=== PATIENT | female | born 1985 | race Caucasian/White ===

== ENCOUNTER 2020-01-29 14:27 | Emergency (ER) | payer SELFPAY ==
--- NOTE | 2020-01-29 14:39 | ER Document Report ---
ED Extremity Problem, Lower - General Chief Complaint: Foot Pain Stated Complaint: HEEL PAIN Time Seen by Provider: 01/29/20 14:30 Primary Care Provider: ANIVAL KAN DPM [ACTIVE STAFF] - Follow up as needed Mode of Arrival: Ambulatory Information source: Patient Notes: 34-year-old female presents to ED for complaint of pain to the right heel and foot. She states 4 days ago she started with burning to the lateral side of the foot and then now she has burning to the heel. She states she was walking when it started and it has continued and progressed. She states she called her mother in [place] and she told her that she had to get a steroid shot for the same pain in the past. - HPI Patient complains to provider of: Pain. No: Injury Location: Foot Occurred: Other Onset/Duration: Gradual - Days Quality of pain: Burning Severity: Severe Pain Level: 5 Recent injury: No Associated symptoms: Painful ambulation Exacerbated by: Movement, Walking Relieved by: Nothing - Related Data Allergies/Adverse Reactions: No Known Allergies Allergy (Unverified 01/29/20 14:35) Past Medical History - General Information source: Patient - Social History Smoking Status: Former Smoker - Vapor Cigarette use (# per day): No Frequency of alcohol use: None Drug Abuse: None Lives with: Family Family History: Reviewed & Not Pertinent Patient has suicidal ideation: No Patient has homicidal ideation: No - Past Medical History Cardiac Medical History: Reports: None Pulmonary Medical History: Reports: None EENT Medical History: Reports: None Neurological Medical History: Reports: None Endocrine Medical History: Reports: None Renal/ Medical History: Reports: None Malignancy Medical History: Reports: None GI Medical History: Reports: None Musculoskeletal Medical History: Reports None Skin Medical History: Reports None Psychiatric Medical History: Reports: Hx Anxiety, Hx Bipolar Disorder, Hx Depression, Hx Schizophrenia Traumatic Medical History: Reports: None Infectious Medical History: Reports: None Surgical Hx: Negative Past Surgical History: Reports: None - Immunizations Immunizations up to date: Yes Hx Diphtheria, Pertussis, Tetanus Vaccination: Yes Review of Systems - Review of Systems Constitutional: No symptoms reported EENT: No symptoms reported Cardiovascular: No symptoms reported Respiratory: No symptoms reported Gastrointestinal: No symptoms reported Genitourinary: No symptoms reported Female Genitourinary: No symptoms reported Musculoskeletal: Other Skin: No symptoms reported Hematologic/Lymphatic: No symptoms reported Neurological/Psychological: No symptoms reported -: Yes All other systems reviewed and negative Physical Exam - Vital signs Vitals: Temp Pulse Resp BP Pulse Ox 98.0 F 83 20 142/66 H 100 01/29/20 14:31 01/29/20 14:31 01/29/20 14:31 01/29/20 14:31 01/29/20 14:31 Interpretation: Normal - General General appearance: Appears well, Alert - HEENT Head: Normocephalic, Atraumatic Eyes: Normal Pupils: PERRL - Respiratory Respiratory status: No respiratory distress Chest status: Nontender Breath sounds: Normal Chest palpation: Normal - Cardiovascular Rhythm: Regular Heart sounds: Normal auscultation Murmur: No - Abdominal Inspection: Normal Distension: No distension Bowel sounds: Normal Tenderness: Nontender Organomegaly: No organomegaly - Back Back: Normal, Nontender - Extremities General upper extremity: Normal inspection, Nontender, Normal color, Normal ROM, Normal temperature General lower extremity: Normal color, Normal ROM, Normal temperature. No: Vaibhav's sign Foot: Tender - Bottom of the foot and the heel, No evidence of FB - Neurological Neuro grossly intact: Yes Cognition: Normal Orientation: AAOx4 Gray Coma Scale Eye Opening: Spontaneous Debora Coma Scale Verbal: Oriented Debora Coma Scale Motor: Obeys Commands Debora Coma Scale Total: 15 Speech: Normal Motor strength normal: LUE, RUE, LLE, RLE Sensory: Normal - Psychological Associated symptoms: Normal affect, Normal mood - Skin Skin Temperature: Warm Skin Moisture: Dry Skin Color: Normal Course - Re-evaluation Re-evalutation: 01/29/20 15:31 Discussed x-ray with patient and showed her the films. Patient was instructed on use of ice packs foot exercises and need to follow-up with podiatry. Patient verbalized understanding and agreement with treatment plan and patient was discharged home. - Vital Signs Vital signs: Temp Pulse Resp BP Pulse Ox 98.2 F 84 15 126/66 H 100 01/29/20 15:13 01/29/20 15:13 01/29/20 15:13 01/29/20 15:13 01/29/20 15:13 - Diagnostic Test Radiology reviewed: Image reviewed, Reports reviewed Discharge - Discharge Clinical Impression: Plantar fasciitis, Right foot pain Condition: Stable Disposition: HOME, SELF-CARE Additional Instructions: Plantar Fasciitis or Heel Spur Plantar fasciitis is an inflammation of a ligament on the underside of the foot. It can be caused by injury, overuse such as running, or poorly fitting shoes. There may be a bone spur on the heel if inflammation has persisted a long time. Plantar fasciitis is treated with stretching exercises and antiinflammatory medicine. More severe cases may require injection of cortisone. It may take several weeks to get better. If nothing gives relief, an operation to remove the heel spur may help. Call or return if there is redness, increasing pain, swelling, fever, or any other new symptoms. Exercises for the Foot Muscles Stretching and strengthening of the foot muscles is an important part of recovery from injury, as well as in treatment and prevention of overuse syndr omes like plantar fasciitis. TOWEL CURLS: Put your foot on a dry towel. Curl your toes to pick it up, then drop it. As it becomes easier, use a heavier towel. Repeat 20 times, twice daily. BOLANOS CURLS: Lift and turn your knee, so your foot is against the opposite leg about mid-bolanos. Try to "grab" the entire bolanos bone with your toes, while moving your foot up and down the leg for one minute. Repeat twice daily. TOE LIFTS: Put your opposite foot over your 2nd to 5th toes. Now lift the toes up, pushing the other foot upward. Repeat 10 times, twice daily. Repeat using the large toe. EVERSIONS: Cross the opposite foot over, placing the heel just behind the 4th and 5th toes. Try to lift up the outside of the bottom foot. Hold 10 seconds. Repeat twice daily. Ice Packs Apply ice packs frequently against the painful area. Many different schedules are recommended, such as "20 minutes on, 20 minutes off" or "one hour ice, two hours rest." If you need to work, you may need to go longer between ice treatments. You should plan to have the area ice packed AT LEAST one fourth of the time. The ice should be applied over the wrap, tape, or splint, or over a layer of cloth -- not directly against the skin. Some ice bags have a built-in cloth and can be put directly on the skin. Ibuprofen Ibuprofen is an excellent, safe drug for pain control. In addition, it has potent antiinflammatory effects which are beneficial, especially in the treatment of injuries, arthritis, or tendonitis. It's best to take ibuprofen with food. Persons with ulcer disease or allergy to aspirin should notify their physician of this before taking ibuprofen. Take the medication exactly as prescribed. Don't take additional doses unless instructed to do so by your doctor. If you develop wheezing, shortness of breath, hives, faintness, stomach pain, vomiting, or dark black stools, return for re-evaluation at once. FOLLOW-UP CARE: If you have been referred to a physician for follow-up care, call the physicians office for an appointment as you were instructed or within the next two days. If you experience worsening or a significant change in your symptoms, notify the physician immediately or return to the Emergency Department at any time for re-evaluation. Forms: Smoking Cessation Education Referrals: ANIVAL KAN DPM [ACTIVE STAFF] - Follow up as needed
[2020-01-29] MEDS ORDERED: IBUPROFEN 800 MG TABLET PO ONE (14:43)
--- NOTE | 2020-01-29 15:01 | RADIOLOGY REPORT (SQ) ---
EXAM DESCRIPTION: FOOT RIGHT COMPLETE COMPLETED DATE/TIME: 01/29/2020 2:51 pm REASON FOR STUDY: foot pain COMPARISON: None. NUMBER OF VIEWS: Three views. TECHNIQUE: AP, lateral and oblique radiographic images acquired of the right foot. LIMITATIONS: None. FINDINGS: MINERALIZATION: Normal. BONES: No acute fracture or dislocation. No worrisome bone lesions. JOINTS: No effusions. SOFT TISSUES: No soft tissue swelling. No foreign body. OTHER: No other significant finding. IMPRESSION: NEGATIVE STUDY OF THE RIGHT FOOT. NO RADIOGRAPHIC EVIDENCE OF ACUTE INJURY. TECHNICAL DOCUMENTATION: JOB ID: [id number] [employer]- All Rights Reserved Reading location - IP/workstation name: [email or web address]
[2020-01-29 15:15] VITALS: BP 126/66
== END 2020-01-29 15:27 | disposition home or self-care (01) ==
LOC: ER 14:27
DX: M72.2 Plantar fascial fibromatosis (principal); M79.671 Pain in right foot; Z87.891 Personal history of nicotine dependence
CPT/HCPCS: 99283

== ENCOUNTER 2020-05-26 12:08 | Emergency (ER) | payer SELFPAY ==
[2020-05-26] MEDS ORDERED: OXYCODONE-ACETAMINOPHEN 5-325 MG TABLET PO ONE (13:00)
--- NOTE | 2020-05-26 13:40 | RADIOLOGY REPORT (SQ) ---
EXAM DESCRIPTION: KNEE RIGHT 4 VIEWS IMAGES COMPLETED DATE/TIME: 05/26/2020 1:20 pm REASON FOR STUDY: fall, pain anterior knee COMPARISON: None. NUMBER OF VIEWS: Four views. TECHNIQUE: AP, lateral, and both oblique radiographic images acquired of the right knee. LIMITATIONS: None. FINDINGS: MINERALIZATION: Normal. BONES: No acute fracture or dislocation. No worrisome bone lesions. JOINT: No effusion. SOFT TISSUES: No soft tissue swelling. No radio-opaque foreign body. IMPRESSION: NEGATIVE STUDY OF THE RIGHT KNEE. NO RADIOGRAPHIC EVIDENCE OF ACUTE INJURY. TECHNICAL DOCUMENTATION: JOB ID: [id number] 2010 [employer]- All Rights Reserved Reading location - IP/workstation name: [email or web address]
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
[2020-05-26 14:34] VITALS: BP 91/52
== END 2020-05-26 14:42 | disposition home or self-care (01) ==
LOC: ER 12:08
DX: S89.91XA Unspecified injury of right lower leg, initial encounter (principal); M25.561 Pain in right knee; V00.121A Fall from non-in-line roller-skates, initial encounter; W50.0XXA Accidental hit or strike by another person, initial encounter; Y93.51 Activity, roller skating (inline) and skateboarding
CPT/HCPCS: 99283

== ENCOUNTER 2020-06-02 20:10 | Emergency (ER) | payer SELFPAY ==
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
--- NOTE | 2020-06-03 01:52 | RADIOLOGY REPORT (SQ) ---
CLINICAL HISTORY: increasing pain in knee COMPARISON: None. TECHNIQUE: CT LOWER EXTREMITY WITHOUT IV CONTRAST 06/02/2020 9:01 PM CDT. MIP reconstructions were generated. FINDINGS: There is no acute fracture or dislocation. There is no significant soft tissue swelling. The knee joint is intact. There is no effusion. IMPRESSION: No definite posttraumatic findings.
[2020-06-03] MEDS ORDERED: HYDROCODONE/ACETAMINOPHEN 5-325 MG (6 TAB/ER DISP) PO PRN (02:58)
[2020-06-03 03:27] VITALS: BP 104/61
== END 2020-06-03 03:40 | disposition home or self-care (01) ==
LOC: ER 20:10
DX: M25.561 Pain in right knee (principal); V00.121A Fall from non-in-line roller-skates, initial encounter; Y93.51 Activity, roller skating (inline) and skateboarding; F17.210 Nicotine dependence, cigarettes, uncomplicated
CPT/HCPCS: 99283